=== PATIENT | female | born 1985 | race Caucasian/White ===

== ENCOUNTER 2022-02-06 10:42 | Outpatient (CLI) | payer OTHER, SELFPAY ==
--- NOTE | 2022-02-09 12:33 | WPDHOLTEREM ---
Holter/Event Monitor Holter/Event Monitor Date of procedure: 02/06/22 Holter/Event Procedure: 48 Hr Holter Monitor Indications: Palpitations Conclusion: 1. 48 hour holter monitor on 02/06/22. 2. Underlying rhythm is sinus rhythm. HR range 50-122 bpm; average HR 77 bpm. 3. There are 10 premature supraventricular complexes. No supraventricular tachycardia. 4. There is 1 premature ventricular complex. No ventricular tachycardia. 5. No sinoatrial or atrioventricular blocks. No significant pauses greater than 2 seconds. 6. No symptoms available for correlation.
== END 2022-02-06 10:43 | disposition home or self-care (01) ==
PROVIDERS: PCP Internal Medicine; Visit Provider Internal Medicine
DX: R00.2 Palpitations (principal); R00.1 Bradycardia, unspecified
CPT/HCPCS: 93225; 93226

== ENCOUNTER → 2023-08-26 10:26 | Outpatient (CLI) | payer OTHER, SELFPAY ==
--- NOTE | ~2023-08-26 | US_ITS ---
US axilla LT 08/26/2023 10:42 Indication: Evaluate left axillary lymph nodes Procedure: High-resolution ultrasound of the left axilla Comparison: Ultrasound dated 07/26/2017 Findings: There is an atypical appearing left axillary lymph node measuring 1.6 x 1.3 x 1.0 cm with e ffacement of the fatty hilum. There are multiple additional normal. Left axillary lymph nodes. Impression: 1: Atypical left axillary lymph node enlargement measuring up to 1.6 cm, nonspecific. Recommend follo w-up ultrasound as clinically warranted. If there is a history of malignancy, consider biopsy. Reviewed, dictated and finalized at location L. RNMENT OPERATIONS CONSULTANT Impression: 1: Atypical left axillary lymph node enlargement measuring up to 1.6 cm, nonspe cific. Recommend follow-up ultrasound as clinically warranted. If there is a hi story of malignancy, consider biopsy.
== END ==
PROVIDERS: PCP Internal Medicine; Visit Provider Internal Medicine
DX: R59.0 Localized enlarged lymph nodes (principal)
CPT/HCPCS: 76882

== ENCOUNTER 2025-08-02 09:24 | Outpatient (CLI) | payer BC, SELFPAY ==
--- NOTE | ~2025-08-02 | US_ITS ---
EXAMINATION: US renal BI, 08/02/2025 9:28 CDT HISTORY: Z87.448 - Personal history of other diseases of urinary s... Comparison: Comparison 10/15/2011. Technique: Spaulding-scale and color Doppler images were obtained. Findings: KIDNEYS: The renal cortices are intact with no cysts or calculi, no hydronephrosis. Right Kidney: Right kidney 10.5 x 4.4 x 4.5 cm, normal. Left Kidney: Left kidney 9.8 x 4.4 x 4.7 cm, there is a solid-appearing lesion arising from the inferior pole measuring 3.1 x 2.7 cm. Bladder: The bladder is unremarkable. . Impression: Solid-appearing left renal lesion. Contrast-enhanced CT or MRI recommended to assess Reviewed, dictated and finalized at location P. Impression: Solid-appearing left renal lesion. Contrast-enhanced CT or MRI recommended to a ssess
== END 2025-08-02 09:25 | disposition home or self-care (01) ==
PROVIDERS: PCP Internal Medicine; Visit Provider Internal Medicine
DX: Z87.448 Personal history of other diseases of urinary system (principal); N28.89 Other specified disorders of kidney and ureter
CPT/HCPCS: 76770

== ENCOUNTER 2025-08-08 10:32 | Outpatient (CLI) | payer BC, SELFPAY ==
--- NOTE | ~2025-08-08 | CT_ITS ---
EXAMINATION: CT abdomen wo/w con DATE: 08/08/2025 11:19 INDICATION: Left kidney mass. TECHNIQUE: Computed tomography (CT) of the abdomen was performed without and with 100 mL Omnipaque 350 intravenous contrast. Automated exposure control and iterative reconstruction technique were employed. The dose-length product was 292.85 mGy-cm. COMPARISON: Kidney ultrasound 08/02/2025, CT abdomen 10/15/2011 FINDINGS: The visualized portions of the lung bases demonstrate mild atelectasis. No pleural effusion. The heart size is normal. No pericardial effusion. The liver, gallbladder, spleen, pancreas, adrenal glands, and right kidney are normal. There is a 13 mm cyst in left kidney with peripheral calcifications. There are no dilated loops of bowel. There are no pathologically enlarged lymph nodes. There is no free intraperitoneal fluid. There is mild lumbar spondylosis. IMPRESSION: 1. 13 mm benign cyst in left kidney. Reviewed, dictated and finalized at location E. RTMENT [employer]
== END 2025-08-08 10:33 | disposition home or self-care (01) ==
PROVIDERS: PCP Internal Medicine; Visit Provider Internal Medicine
DX: N28.89 Other specified disorders of kidney and ureter (principal); N28.1 Cyst of kidney, acquired
CPT/HCPCS: 74170; Q9967